=== PATIENT | female | born 1970 | race Caucasian/White ===

== ENCOUNTER 2017-11-22 11:30 | Emergency (ER) | payer BC ==
[~2017-11-22] VITALS: Wt 63.5 kg
[2017-11-22] MEDS ORDERED: NORCO 5-325 TA1 EACH PO (12:48)
== END 2017-11-22 13:05 | disposition home or self-care (01) ==
LOC: ED 11:30
DX: S96.912A Strain of unspecified muscle and tendon at ankle and foot level, left foot, initial encounter (principal); Z88.2 Allergy status to sulfonamides; X50.0XXA Overexertion from strenuous movement or load, initial encounter; Y93.01 Activity, walking, marching and hiking; Y92.89 Other specified places as the place of occurrence of the external cause; Y99.8 Other external cause status